=== PATIENT | female | born 1995 | race Caucasian/White ===

== ENCOUNTER 2024-03-28 05:45 | Observation (INO) | payer OTHER, SELFPAY ==
[2024-03-28] VITALS (18 sets, daily range): BP systolic 89–130; BP diastolic 61–81; BMI 25.3
[2024-03-28 02:18] LABS: % Basophils 0.1 % (0-2); % Eosinophils 0.3 % (0-6); % Immature Granulocytes 0.4 % (0-0.5); % Lymphocytes 12.3 % (20.5-51.1); % Monocytes 5.4 % (1.7-9.3); % Neutrophils 81.5 % (42.2-75.2); Absolute Lymphocytes 1.2 10^3/uL (1.2-3.4); Absolute Monocytes 0.5 10^3/uL (0.1-0.6); Absolute Neutrophils 7.6 10^3/uL (1.4-6.5); Hematocrit 30.1 % (37.0-47.0); Hemoglobin 10.6 g/dL (12.0-16.0); Mean Corp Hgb Conc. 35.2 g/dL (33.0-37.0); Mean Corpuscular Hgb 29.5 pg (27.0-31.0); Mean Corpuscular Volume 83.8 fL (81.0-99.0); Mean Platelet Volume 9.8 fL (7.4-10.4); Nucleated Red Blood Cells % 0 %; Platelet Count 197 10^3/uL (130-400); Red Blood Cell Count 3.59 10^6/uL (4.20-5.40); Red Cell Dist. Width 13.2 % (11.5-14.5); White Blood Cell Count 9.3 10^3/uL (4.8-10.8)
[2024-03-28 02:25] LABS: HCG, Serum Qualitative Screen Positive
[2024-03-28 02:34] LABS: ALT (SGPT) 16 U/L (0-35); AST (SGOT) 24 U/L (14-36); Albumin 4.6 g/dl (3.5-5.0); Alkaline Phosphatase 60 U/L (38-126); Blood Urea Nitrogen 10 mg/dl (7-17); Calcium 9.7 mg/dl (8.4-10.2); Carbon Dioxide 23 mmol/L (22-30); Chloride 104 mmol/L (98-107); Estimated Creatinine Clearance 103 ml/min; Glucose 110 mg/dl (70-99); Sodium 134 mmol/L (135-145); Total Bilirubin 0.5 mg/dl (0.2-1.3); Total Protein 7.5 g/dl (6.3-8.2); eGFR > 60.00
[2024-03-28] MEDS: NSS 1000 IV (03:05)
--- NOTE | 2024-03-28 03:42 | ED.GENMED ---
History of Present Illness
<MC Becker - Last Filed: 03/28/24 05:26>
General
Chief Complaint: Abdominal Pain
Source: patient
Exam Limitations: none
Time Seen by Provider: 03/28/24 03:24
Nursing documentation reviewed up to this point in time: agreed with
Travel History
Have you had any contact with someone who has COVID-19?: No
Do you have any symptoms of coronavirus? Fever > 100 degrees, chills, cough, shortness of breath, sore throat, loss of taste or smell, muscle aches, or headache?: No
History of Present Illness
History of Present Illness:
This is a 28 year old female with history of chronic UTIs, substance abuse, ovarian cyst who presents to the ED with complaint of intermittent LLQ abdominal pain x5 days. She reports her pain started suddenly and describes it as sharp that has
worsened. Her pain radiates to her RLQ. She also reports nausea and lightheadedness during episodes. She is 4 months (vaginal delivery). She is currently . She was about 2 weeks late for her menstrual cycle and states her
cycle began 2 days after abdominal pain started. She reports current vaginal bleeding. She admits daily BM that are formed. She denies any vomiting, diarrhea, dysuria, fevers, or chills.
Past History
<MC Becker - Last Filed: 03/28/24 05:26>
Past History
ED Past Medical History: None and Other (herniated disc lower back with chronic intermittent pain)
ED Past Surgical History: None
Social History
Tobacco: Non-smoker
Alcohol: None
Drug: IVDA
Employment: Employed
Review of Systems
<MC Becker - Last Filed: 03/28/24 05:26>
Review of Systems
Allergies reviewed?: Yes
All Other Systems: Not applicable
Constitutional: Reports no symptoms
EENT: Reports no symptoms
Respiratory: Reports no symptoms
Cardiac: Reports no symptoms
ABD/GI: Reports abdominal pain (LLQ with radiation to RLQ) and nausea
: Reports no symptoms
Musculoskeletal: Reports no symptoms
Skin: Reports no symptoms
Neurological: Reports other (Lightheadedness )
Endocrine: Reports no symptoms
Hematologic/Lymphatic: Reports no symptoms
Psychiatric: Reports no symptoms
Phy Exam
<MC Becker - Last Filed: 03/28/24 05:26>
General Physical Exam
General Presentation: well appearing and no apparent distress
General Skin: warm and dry
General Habitus: normal
General Mental: alert
General Hydration: appears well hydrated
ENT Exam
ENT Exam: EOMI, pharynx normal, neck supple and normocephalic
Eye Exam
Eye Exam: PERRL, cornea clear and conjunctiva normal
Cardiovascular Exam
Cardiovascular Exam: regular rate/rhythm, no edema, no murmur and normal peripheral pulses
Pulmonary Exam
Pulmonary Exam: lungs clear, no respiratory distress, no rales, no crackles, no rhonchi, no stridor, no wheezing and no cough
Gastrointestinal Exam
Gastrointestinal Exam: normal bowel sounds, soft, no organomegaly, no pulsatile mass and non distended
Palpation: left lower quadrant: Mild tenderness and right lower quadrant: Mild tenderness
Auscultation of Abdomen: normal
Neurological Exam
Neurological Exam: alert, oriented x3, no motor deficits and speech normal
Musculoskeletal Exam
Musculoskeletal Exam: full ROM and no edema
Skin Exam
Skin Exam: normal color, warm/dry, no rash and no petechia
Psychiatric Exam
Psychiatric Exam: normal mood/affect
Course
<MC Becker - Last Filed: 03/28/24 05:26>
Orders/Labs/Results
Orders:
Orders
03/28/24 00:07
Test Result ONCE
03/28/24 02:05
Beta HCG Quantitative Urgent
Comment: ADD ON
03/28/24 02:06
CMP [Comprehensive Metabolic Panel] Urgent
Complete Blood Count/With Diff Urgent
HCG, Serum Qualitative Screen Urgent
03/28/24 03:15
0.9% Sodium Chloride 1000 ml [Nss] 1,000 ml IV BOLUS
03/28/24 03:41
Add On- LAB Urgent
Tests Added?: quantitative hcg
03/28/24 03:48
US W Transvaginal Urgent
Reason For Exam: left side pelvic pain, hcg positive, vag bld
03/28/24 04:59
Lactated Ringers [Lr] 1,000 ml IV BOLUS
03/28/24 05:00
Lactated Ringers [Lr] 1,000 ml IV 999 mls/hr
03/28/24 05:03
Type+Screen Urgent
Abnormal Lab Results
03/28/24
02:06
RBC 3.59 L 10^6/uL
(4.20-5.40)
Hgb 10.6 L g/dL
(12.0-16.0)
Hct 30.1 L %
(37.0-47.0)
Absolute Neuts (auto) 7.6 H 10^3/uL
(1.4-6.5)
Neutrophils % 81.5 H %
(42.2-75.2)
Lymphocytes % 12.3 L %
(20.5-51.1)
Sodium 134 L mmol/L
(135-145)
Glucose 110 H mg/dl
(70-99)
03/28/24 02:06
03/28/24 02:06
Vital Signs
Initial and Last Documented VS:
Initial Vital Signs
Temp Pulse Resp BP Pulse Ox
97.7 F 94 26 130/70 100
03/28/24 00:02 03/28/24 00:02 03/28/24 00:02 03/28/24 00:02 03/28/24 00:02
Last Documented Vital Signs
Temp Pulse Resp BP Pulse Ox
97.7 F 87 16 103/68 100
03/28/24 00:02 03/28/24 02:10 03/28/24 02:10 03/28/24 04:43 03/28/24 04:43
<Torsten Cortes, DO - Last Filed: 03/28/24 05:15>
Orders/Labs/Results
Orders:
Orders
03/28/24 00:07
Test Result ONCE
03/28/24 02:05
Beta HCG Quantitative Urgent
Comment: ADD ON
03/28/24 02:06
CMP [Comprehensive Metabolic Panel] Urgent
Complete Blood Count/With Diff Urgent
HCG, Serum Qualitative Screen Urgent
03/28/24 03:15
0.9% Sodium Chloride 1000 ml [Nss] 1,000 ml IV BOLUS
03/28/24 03:41
Add On- LAB Urgent
Tests Added?: quantitative hcg
03/28/24 03:48
US W Transvaginal Urgent
Reason For Exam: left side pelvic pain, hcg positive, vag bld
03/28/24 04:59
Lactated Ringers [Lr] 1,000 ml IV BOLUS
03/28/24 05:00
Lactated Ringers [Lr] 1,000 ml IV 999 mls/hr
03/28/24 05:03
Type+Screen Urgent
Abnormal Lab Results
03/28/24
02:06
RBC 3.59 L 10^6/uL
(4.20-5.40)
Hgb 10.6 L g/dL
(12.0-16.0)
Hct 30.1 L %
(37.0-47.0)
Absolute Neuts (auto) 7.6 H 10^3/uL
(1.4-6.5)
Neutrophils % 81.5 H %
(42.2-75.2)
Lymphocytes % 12.3 L %
(20.5-51.1)
Sodium 134 L mmol/L
(135-145)
Glucose 110 H mg/dl
(70-99)
03/28/24 02:06
03/28/24 02:06
Vital Signs
Initial and Last Documented VS:
Initial Vital Signs
Temp Pulse Resp BP Pulse Ox
97.7 F 94 26 130/70 100
03/28/24 00:02 03/28/24 00:02 03/28/24 00:02 03/28/24 00:02 03/28/24 00:02
Last Documented Vital Signs
Temp Pulse Resp BP Pulse Ox
97.7 F 87 16 103/68 100
03/28/24 00:02 03/28/24 02:10 03/28/24 02:10 03/28/24 04:43 03/28/24 04:43
<MC Becker - Last Filed: 03/28/24 05:26>
MDM/Problems Addressed
Differential Diagnosis Includes:
Ectopic , ovarian torsion, ruptured ovarian cyst, diverticulitis
Diverticulitis considered due to LLQ, however less likely due to no fever and no WBC on labs. Ruptured ovarian cyst considered due to history of cysts, however less likely. Ovarian torsion considered, but no vomiting. I suspect ectopic
since to positive hCG, quant 1486.60. She reports sudden onset of pain 5 days ago followed by vaginal bleeding 2 days later, which she figured was her late menstrual cycle. Obstetric US confirms ectopic .
<Torsten Cortes DO - Last Filed: 03/28/24 05:15>
*Radiology
Radiology exam reviewed: preliminary read by ED provider (Ultrasound shows left adnexal mass concerning for ectopic , blood seen, free fluid seen in pelvis)
*Pulse Oximetry
Patient hypoxic: no
*EKG
Interpreted by ED Provider?: NA
*Carton Counter Feeder Interpretation
Rate: Carton Counter Feeder- N/A
*Critical Care Note
Total Time (30-74mins, 75-104mins- exclusive of procedures): 30
comment:
Critical care statement: A total of 30 minutes of critical care time was provided for this patient. This includes management of unstable vital signs, evaluation of the patient at bedside, reviewing the patient's pertinent medical records, discussion
with consultants, review of old EKGs and review of pertinent medical records. This time with separate from time utilized to perform the aforementioned documented procedures
<Torsten Cortes DO - Last Filed: 03/28/24 05:15>
Patient Management
Social determinants of health affecting care: Living situation
Discussion with other providers: Intelligence Director (Dr. Wilson)
Escalation/DeEscalation of care consider admission/obs:
admit to OR indicated
ED Attending Note
<MC Becker - Last Filed: 03/28/24 05:26>
-
Portions of this chart may have been created with voice recognition software.� Occasional wrong word or��sound alike� substitutions may have occurred due to the inherent limitations of voice recognition software.
<Torsten Cortes DO - Last Filed: 03/28/24 05:15>
ED Attending Note
Patient seen and examined by attending physician: Yes
I performed a history and physical exam of patient and discussed management with resident, I reviewed resident's note and agree with documented findings and plan of care.: Yes
ED Attending Note:
I have reviewed and agree with history and treatment plan by Esperanza Quigley. My exam reveals 28-year-old female with stable vital signs, tenderness to palpation left adnexa. Ultrasound consistent with ruptured ectopic . [place] text sent to
Dr. Fung, who was in the middle of the delivery, [place] text sent to Dr. Wilson, who will come take patient to the OR.
Discharge Plan
Departure
Patient Disposition: OR
Date of Disposition: 03/28/24
Time of Disposition: 04:55
Admit to: OR
Presentation/result/management discussed w/ accepting MD/DO: Dr. Wilson, squad sergeant
Patient with high blood pressure during this ER visit?: No
Condition: Good
Discharge Problem:
Ruptured ectopic
Prescriptions:
No Action
prenat.vits,diamond,laf-vusy-vtyws Tablet
1 tab PO DAILY
acetaminophen 325 mg Tablet
650 mg PO Q4HPRN PRN (Reason: mild pain) Qty: 0 0RF
ibuprofen 600 mg Tablet
600 mg PO Q6HPRN PRN (Reason: moderate pain/cramps) Qty: 60 0RF
Referrals:
June Leo MD [Family Provider] -
Interventions
Interventions:
*Risk Screen - Suicide Last Done: 03/28/24 00:02
*General Assessment Last Done: 03/28/24 02:07
*Neglect/Abuse Screening Last Done: 03/28/24 00:02
ED- Fall Risk Assessment Last Done: 03/28/24 02:07
*ED COVID-19 Vaccine History Last Done: 03/28/24 02:07
NQ-Cvbhpi-Kdtkhoqxrx Assessment Last Done: 03/28/24 03:00
ED-Female Genitourinary Assessment Last Done: 03/28/24 03:00
Discharge Date and Time
Print Language: CAPE VERDEAN
[2024-03-28] MEDS: LR 1000 IV (05:01)
[2024-03-28] MEDS: DILAUDID 0.5 MG IV (05:42)
--- NOTE | 2024-03-28 06:48 | W.SUR.PREOP ---
Pre-Operative Surgical Note
-
I have examined this patient prior to the performance of the scheduled procedure.
The patient's condition is unchanged from the time of the current History and
Physical and the patient is able to undergo the scheduled procedure.
[2024-03-28] MEDS: DILAUDID 0.25 MG IV (08:07)
[2024-03-28] MEDS: DEMEROL 12.5 MG IV (08:19)
== END 2024-03-28 10:05 | disposition home or self-care (01) ==
LOC: PACUI 05:45
PROVIDERS: ADMITTING PHYSICIAN Obstetrics & Gynecology; EMERGENCY PHYSICIAN Emergency Medicine; FAMILY PHYSICIAN Internal Medicine
DX: O00.102 Left tubal pregnancy without intrauterine pregnancy (principal); R10.32 Left lower quadrant pain; R10.2 Pelvic and perineal pain; R42 Dizziness and giddiness; R11.0 Nausea; M25.511 Pain in right shoulder; F19.11 Other psychoactive substance abuse, in remission; Z87.440 Personal history of urinary (tract) infections
CPT/HCPCS: 59151; 88305; 76801; 76817; 80053; 84702; 84703; 85025; 86850; 86900; 86901; 96360; 96361; 99291; G0378

== ENCOUNTER 2024-04-05 18:33 | Emergency (ER) | payer OTHER, SELFPAY ==
[2024-04-05 18:36] VITALS: BP 110/70
[2024-04-05 20:03] VITALS: BMI 25.8
[2024-04-05 20:19] LABS: % Basophils 0.3 % (0-2); % Eosinophils 1.8 % (0-6); % Immature Granulocytes 0.3 % (0-0.5); % Monocytes 7.2 % (1.7-9.3); % Neutrophils 50.4 % (42.2-75.2); Absolute Eosinophils 0.1 10^3/uL (0-0.7); Absolute Lymphocytes 2.7 10^3/uL (1.2-3.4); Absolute Monocytes 0.5 10^3/uL (0.1-0.6); Absolute Neutrophils 3.5 10^3/uL (1.4-6.5); Hemoglobin 11.2 g/dL (12.0-16.0); Mean Corpuscular Hgb 29.3 pg (27.0-31.0); Mean Corpuscular Volume 83.8 fL (81.0-99.0); Mean Platelet Volume 9.7 fL (7.4-10.4); Nucleated Red Blood Cells % 0 %; Platelet Count 255 10^3/uL (130-400); Red Blood Cell Count 3.82 10^6/uL (4.20-5.40); Red Cell Dist. Width 12.8 % (11.5-14.5); White Blood Cell Count 6.8 10^3/uL (4.8-10.8)
[2024-04-05 20:34] LABS: ALT (SGPT) 14 U/L (0-35); AST (SGOT) 21 U/L (14-36); Albumin 4.7 g/dl (3.5-5.0); Alkaline Phosphatase 64 U/L (38-126); Blood Urea Nitrogen 13 mg/dl (7-17); Calcium 9.7 mg/dl (8.4-10.2); Carbon Dioxide 24 mmol/L (22-30); Chloride 107 mmol/L (98-107); Estimated Creatinine Clearance 80 ml/min; Glucose 88 mg/dl (70-99); Lipase 150 U/L (23-300); Potassium 3.9 mmol/L (3.5-5.1); Sodium 140 mmol/L (135-145); Total Bilirubin 0.5 mg/dl (0.2-1.3); eGFR > 60.00
--- NOTE | 2024-04-05 20:36 | ED.GENMED ---
History of Present Illness
General
Chief Complaint: Post Operative Problem(s)
Source: patient
Exam Limitations: none
Time Seen by Provider: 04/05/24 20:21
Travel History
Have you had any contact with someone who has COVID-19?: No
Do you have any symptoms of coronavirus? Fever > 100 degrees, chills, cough, shortness of breath, sore throat, loss of taste or smell, muscle aches, or headache?: No
History of Present Illness
History of Present Illness:
This is a 28 year old female that comes in with c/o lower abd pain. States that she was here last week at this time with ectopic with fallopian tube rupture. States that she had surgery. States that she has a 4 month old at home and she
probable has been doing more lifting then she was told to but she has to pick him up. State that she has severe lower abd pain and is afraid that something is wrong. State that she has been nauseated, has a slight headache and slight dizziness.
Denies any fever, chills, chest pain, SOB, vomiting, diarrhea, urinary burning.
Past History
Past History
ED Past Medical History: Other (herniated disc lower back with chronic intermittent pain, UTI, Left hip infection, ADD)
ED Past Surgical History: Appendectomy and Gynecological (fallopian tube removed. )
Social History
Tobacco: Non-smoker
Alcohol: None
Drug: IVDA
Personal:
Living: with family
Employment: Employed
Review of Systems
Review of Systems
All Other Systems: ROS reviewed and negative except as documented in HPI and ROS
Constitutional: Reports no symptoms; Denies fever or chills
EENT: Reports no symptoms
Respiratory: Reports no symptoms; Denies cough or trouble breathing
Cardiac: Reports no symptoms; Denies chest pain
ABD/GI: Reports abdominal pain and nausea; Denies vomiting or diarrhea
: Reports no symptoms; Denies urgency
Musculoskeletal: Reports no symptoms
Skin: Reports no symptoms
Neurological: Reports dizzy (Slight) and headache (Slight)
Psychiatric: Reports no symptoms
Phy Exam
General Physical Exam
General Presentation: no apparent distress
General age: appears stated age
General Skin: warm and dry
General Habitus: normal
General Mental: alert and anxious
ENT Exam
ENT Exam: TM's normal, pharynx normal and neck supple
Eye Exam
Eye Exam: EOMI
Cardiovascular Exam
Cardiovascular Exam: regular rate/rhythm, no edema, no murmur and normal peripheral pulses
Pulmonary Exam
Pulmonary Exam: lungs clear, no respiratory distress, no rales, chest non tender, no crackles, no rhonchi, no wheezing and no cough
Gastrointestinal Exam
Gastrointestinal Exam: normal bowel sounds, soft, no organomegaly, no pulsatile mass, non distended and tender (Lower abd tenderness with palpation)
Musculoskeletal Exam
Musculoskeletal Exam: full ROM and no edema
Skin Exam
Skin Exam: normal color, warm/dry, no rash, no petechia and other (3 small incision line noted with dermabond skin glue intact. Negative for any redness or drainage. )
Psychiatric Exam
Psychiatric Exam: normal mood/affect
Course
Orders/Labs/Results
Orders:
Orders
04/05/24 20:12
Complete Blood Count/With Diff Urgent
Comprehensive Metabolic Panel Urgent
HCG, Serum Qualitative Screen Urgent
Lipase Urgent
04/05/24 20:36
CT Abd/pelvis W Iv Cont Urgent
Comment: ectopic , Fallopian tube removed L
Reason For Exam: Lower abd pain
04/05/24 20:37
Add On- LAB Urgent
Tests Added?: HCG
04/05/24 20:40
Urinalysis Reflex To Culture Urgent
0.9% Sodium Chloride 1000 ml [Nss] 1,000 ml IV BOLUS
04/05/24 20:42
Acetaminophen [Tylenol] 1,000 mg PO NOW STA
04/05/24 22:12
Tramadol HCl [Ultram] 25 mg PO NOW STA
Abnormal Lab Results
04/05/24
20:12
RBC 3.82 L 10^6/uL
(4.20-5.40)
Hgb 11.2 L g/dL
(12.0-16.0)
Hct 32.0 L %
(37.0-47.0)
04/05/24 20:12
04/05/24 20:12
H/H slightly low. Lipase normal at 150
Vital Signs
Initial and Last Documented VS:
Initial Vital Signs
Temp Pulse Resp BP Pulse Ox
98.1 F 91 20 110/70 100
04/05/24 18:36 04/05/24 18:36 04/05/24 18:36 04/05/24 18:36 04/05/24 18:36
Last Documented Vital Signs
Temp Pulse Resp BP Pulse Ox
98.1 F 91 20 110/70 100
04/05/24 18:36 04/05/24 18:36 04/05/24 18:36 04/05/24 18:36 04/05/24 18:36
MDM/Problems Addressed
Differential Diagnosis Includes:
post surgical soreness,
MDM/Problems Addressed:
This is a 28 year old female that comes in with c/o lower bd pain. Patient had a ruptued fallopian tube with removal last Wednesday. State that she has severe increased lower abd pain.
Will get labs and CT scan.
Back into see patient. Explained that her blood work is normal and her CT scan is negative for any acute process. There is a small right ovarian cyst. Please follow up with the [facility] for further evaluation.
Chronic conditions affecting care: Previous abdomnial surgery
Acute Exacerbation and/or Progression of Chronic Illness: Previous abdomnial surgery
*Radiology
Radiology exam reviewed: radiology read reviewed (CT-Slightlly complex small right adnexal cystic lesion, possibly a hemorrhagic cyst. Consider further evaluation with dedicated pelvic US. Small focus of free air within the lower abd, likely
postoperative. Otherwise no significant abnormality identified in the abd or pelvis. )
*Pulse Oximetry
Patient hypoxic: no
*EKG
Interpreted by ED Provider?: NA
Rate: EKG- N/A
*Automation And Controls Instructor Interpretation
Rate: Automation And Controls Instructor- N/A
*Critical Care Note
Total Time (30-74mins, 75-104mins- exclusive of procedures): Not Applicable
ED Attending Note
-
Portions of this chart may have been created with voice recognition software.� Occasional wrong word or��sound alike� substitutions may have occurred due to the inherent limitations of voice recognition software.
Discharge Plan
Departure
Patient Disposition: Home (Routine Discharge)
Date of Disposition: 04/05/24
Time of Disposition: 22:48
Patient with high blood pressure during this ER visit?: No
Condition: Good
Covid-19: Not Applicable
Discharge Problem:
Lower abdominal pain
Instructions: Abdominal Pain
Prescriptions:
No Action
prenat.vits,daimond,nfw-nrds-iovbm Tablet
1 tab PO DAILY
acetaminophen 325 mg Tablet
650 mg PO Q4HPRN PRN (Reason: mild pain) Qty: 0 0RF
oxycodone-acetaminophen [Endocet] 5-325 mg tablet
1 tab PO Q4H PRN (Reason: pain) Qty: 10 0RF
ibuprofen 600 mg Tablet
600 mg PO Q6HPRN PRN (Reason: moderate pain/cramps) Qty: 60 0RF
Referrals:
June Leo MD [Family Provider] - Call in 1-3 days for appt
Activity Restrictions/Additional Instructions:
As discussed, your blood work is normal. Your CT is negative for any acute process. There is a right ovarian cyst noted on the CT scan. Please follow up with the [facility]. You may take Tylenol 1000mg every 6 hours for pain and Ibuprofen 600mg every 6
hours with food for pain. Use a heating pad for comfort. IF YOU HAVE INCREASED OR CHANGING PAIN, OR YOU HAVE ANY OTHER CONCERNS PLEASE RETURN TO THE EMERGENCY ROOM.
Interventions
Interventions:
*Risk Screen - Suicide Last Done: 04/05/24 18:36
*General Assessment Last Done: 04/05/24 18:36
*Neglect/Abuse Screening Last Done: 04/05/24 18:36
PE-Ztyciw-Dsruwowjbh Assessment Last Done: 04/05/24 20:09
ED-Skin Assessment Last Done: 04/05/24 20:09
Discharge Date and Time
Print Language: LATVIAN
[2024-04-05] MEDS: NSS 1000 IV (20:56)
[2024-04-05 21:39] LABS: HCG, Serum Qualitative Screen Positive
[2024-04-05] MEDS: ULTRAM 25 MG PO (22:19)
[2024-04-05 22:40] VITALS: BP 109/82
== END 2024-04-05 23:14 | disposition home or self-care (01) ==
LOC: EMR 18:33
PROVIDERS: EMERGENCY PHYSICIAN Emergency Medicine; FAMILY PHYSICIAN Internal Medicine
DX: R10.30 Lower abdominal pain, unspecified (principal); N83.201 Unspecified ovarian cyst, right side
CPT/HCPCS: 99285; 96360; 74177; 80053; 83690; 84703; 85025; Q9967

== ENCOUNTER → 2025-08-14 08:51 | Outpatient (REF) | payer OTHER, SELFPAY | LOC: PNTC 08:51 | PROVIDERS: ATTENDING PHYSICIAN Obstetrics & Gynecology | DX: O09.813 Supervision of pregnancy resulting from assisted reproductive technology, third trimester (principal) | CPT/HCPCS: 59025; 76815 ==

== ENCOUNTER → 2025-08-21 11:21 | Outpatient (REF) | payer OTHER, SELFPAY | LOC: PNTC 11:21 | PROVIDERS: ATTENDING PHYSICIAN Obstetrics & Gynecology | DX: O09.819 Supervision of pregnancy resulting from assisted reproductive technology, unspecified trimester (principal) | CPT/HCPCS: 59025; 76818 ==

== ENCOUNTER → 2025-08-28 09:32 | Outpatient (REF) | payer OTHER, SELFPAY | LOC: PNTC 09:32 | PROVIDERS: ATTENDING PHYSICIAN Student in an Organized Health Care Education/Training Program | DX: O09.813 Supervision of pregnancy resulting from assisted reproductive technology, third trimester (principal) | CPT/HCPCS: 59025; 76815 ==

== ENCOUNTER → 2025-09-04 09:31 | Outpatient (REF) | payer OTHER, SELFPAY | LOC: PNTC 09:31 | PROVIDERS: ATTENDING PHYSICIAN Student in an Organized Health Care Education/Training Program | DX: O09.813 Supervision of pregnancy resulting from assisted reproductive technology, third trimester (principal) | CPT/HCPCS: 59025; 76816 ==

== ENCOUNTER 2025-09-09 16:45 | Inpatient (IN) | payer OTHER, SELFPAY ==
[2025-09-09 16:56] VITALS: BMI 30.1
[2025-09-09 17:14] VITALS: BP 121/70
[2025-09-09] MEDS: LR 1000 IV ×2 (17:45→20:57)
[2025-09-09 17:53] LABS: Hematocrit 31.4 % (37.0-47.0); Hemoglobin 11.0 g/dL (12.0-16.0); Mean Corp Hgb Conc. 35.0 g/dL (33.0-37.0); Mean Corpuscular Volume 92.1 fL (81.0-99.0); Nucleated Red Blood Cells % 0 %; Platelet Count 149 10^3/uL (130-400); Red Cell Dist. Width 13.2 % (11.5-14.5)
[2025-09-09 18:19] LABS: ALT (SGPT) 12 U/L (0-35); AST (SGOT) 22 U/L (14-36); Albumin 3.6 g/dl (3.5-5.0); Alkaline Phosphatase 139 U/L (38-126); Blood Urea Nitrogen 10 mg/dl (7-17); Calcium 9.1 mg/dl (8.4-10.2); Carbon Dioxide 18 mmol/L (22-30); Chloride 111 mmol/L (98-107); Estimated Creatinine Clearance 121 ml/min; Glucose 102 mg/dl (70-99); Potassium 4.0 mmol/L (3.5-5.1); Sodium 135 mmol/L (135-145); Total Protein 6.5 g/dl (6.3-8.2); eGFR > 60.00
[2025-09-09] MEDS: PITOCIN 30 UNITS/NSS 500 ML IV (18:20)
[2025-09-09 18:45] LABS: Hepatitis B Surface Antigen Negative (Negative)
[2025-09-09 19:03] LABS: Hepatitis C Antibody Negative (Negative)
[2025-09-09] MEDS: SUBLIMAZE 100 MCG EPIDURAL (20:31)
[2025-09-09] MEDS: FENTANYL/BUPIVACAINE 100 EPIDURAL (20:31)
[2025-09-10] MEDS: CYTOTEC 800 MCG RECTAL (00:09)
[2025-09-10] MEDS: TRANEXAMIC ACID 100 IV (00:13)
[2025-09-10] MEDS: METHERGINE INJECTION 0.2 MG IM (00:15)
[2025-09-10] MEDS: MOTRIN 600 MG PO ×3 (03:11→15:13)
[2025-09-10] MEDS: TYLENOL 650 MG PO ×2 (05:06→09:40)
[2025-09-10 06:58] LABS: Hematocrit 26.4 % (37.0-47.0); Hemoglobin 9.1 g/dL (12.0-16.0)
[2025-09-10] MEDS: PRENATAL PLUS 1 TABLET PO (08:30)
[2025-09-10] MEDS: COLACE 100 MG PO ×2 (08:30→19:45)
[2025-09-10] MEDS: FEOSOL 325 MG PO (09:40)
[2025-09-10] MEDS: RHOGAM 300 MCG IM (12:33)
[2025-09-11] MEDS: MOTRIN 600 MG PO (02:45)
[2025-09-11] MEDS: TYLENOL 650 MG PO (02:45)
[2025-09-11] MEDS: COLACE 100 MG PO (07:58)
[2025-09-11] MEDS: PRENATAL PLUS 1 TABLET PO (07:58)
[2025-09-11] MEDS: FEOSOL 325 MG PO (07:58)
[2025-09-11 13:33] LABS: Syphilis/T. pallidum Ab Reflex Negative (Negative)
[2025-09-11 13:33] LABS: Syphilis/T. pallidum Ab Reflex Negative (Negative)
== END 2025-09-11 10:26 | disposition home or self-care (01) | DRG 807 ==
LOC: LDRP 16:45
PROVIDERS: Student in an Organized Health Care Education/Training Program; ADMITTING PHYSICIAN Obstetrics & Gynecology
PROC: 10907ZC Drainage of Amniotic Fluid, Therapeutic from Products of Conception, Via Natural or Artificial Opening (ICD-10-PCS; 2025-09-09)
PROC: 10E0XZZ Delivery of Products of Conception, External Approach (ICD-10-PCS; 2025-09-10)
PROC: 0KQM0ZZ Repair Perineum Muscle, Open Approach (ICD-10-PCS; 2025-09-10)
DX: O76 Abnormality in fetal heart rate and rhythm complicating labor and delivery (principal); Z37.0 Single live birth; Z3A.39 39 weeks gestation of pregnancy; O43.123 Velamentous insertion of umbilical cord, third trimester; O70.1 Second degree perineal laceration during delivery
CPT/HCPCS: 36415; 80053; 82570; 84156; 85014; 85018; 85025; 85461; 86762; 86780; 86803; 86850; 86900; 86901; 87340; 87389; 88307; J2790